=== PATIENT | male | born 1960 | race Caucasian/White ===

== ENCOUNTER → 2017-03-04 | Outpatient (CLI) | payer OTHER ==
[~2017-03-04] MED LIST: GADOBUTROL 10 MMOL/10 ML VIAL IV ONE; LEXAPRO10 MG PO
--- NOTE | 2017-03-04 14:23 | RAD ---
EXAM: Brain MRI with and without contrast. HISTORY: Headaches and dizziness. Vestibular schwannoma. TECHNIQUE: Multiplanar, multisequence magnetic resonance imaging of the brain was performed prior to and following the administration of 9 cc Gadavist intravenous contrast. COMPARISON: 09/20/2014 and 09/21/2013 FINDINGS: There is no restricted diffusion to suggest acute or subacute infarction. There is no midline shift. There is no hydrocephalus. There are a few scattered foci of T2/FLAIR hyperintensity within the cerebral white matter, a nonspecific finding. There is an enhancing mass centered within the right internal auditory canal with extension to the cerebellopontine angle. This measures 1.5 cm anteroposteriorly by 1.4 cm transversely by 1.6 cm craniocaudally. This lesion expands the internal auditory canal and porus acusticus. The extracanalicular portion of the lesion measures 1.5 x 0.5 x 0.5 cm and abuts the left trigeminal nerve complex and traversing cerebellopontine angle vessels. There is no significant mass effect on the brain. There is no lesion extension to the basal turn of the cochlea. No additional enhancing lesion is seen. The orbits are unremarkable. There is mild paranasal sinus mucosal thickening. The mastoid air cells are clear. There are normal flow voids within the cerebral vessels. IMPRESSION: 1. 1.6 x 1.5 x 1.4 cm enhancing mass centered within an expanded left internal auditory canal, with extension into the cerebellopontine angle to about the left trigeminal nerve complex. This is consistent with a similar schwannoma and increased in size compared to prior measurements of 1.4 x 1.3 x 1.2 cm. There are 2. Scattered foci of signal change within the cerebral white matter, likely due to chronic small vessel disease. Electronically signed by: Angelica Nolasco MD (03/04/2017 2:20 PM) [id number]
== END | disposition home or self-care (01) ==
LOC: MRI 12:21
PROVIDERS: ATTEND Radiology Radiation Oncology
DX: D33.3 Benign neoplasm of cranial nerves (principal); R51 Headache; R42 Dizziness and giddiness
CPT/HCPCS: 70553; A9585

== ENCOUNTER → 2017-12-08 | Outpatient (CLI) | payer OTHER ==
[2017-12-08] MEDS: GADOBUTROL 7.5 MMOL/7.5 ML VIAL IV (15:24)
== END | disposition home or self-care (01) ==
LOC: MRI 13:53
DX: D33.3 Benign neoplasm of cranial nerves (principal); Z92.3 Personal history of irradiation
CPT/HCPCS: 70553; A9585

== ENCOUNTER → 2021-09-18 | Outpatient (CLI) | payer OTHER ==
[~2021-09-18] MED LIST changes: -GADOBUTROL 10 MMOL/10 ML VIAL IV ONE; +GADOTERATE 7.5 MMOL/15ML VIAL. IVP ONE
--- NOTE | 2021-09-18 16:18 | KCIC ---
EXAMINATION: Magnetic resonance imaging (MRI) of the brain and brainstem with and without contrast wi th dedicated views of the Temporal Bones and Internal Auditory Canals (IACs) DATE: 09/18/2021 1:20 PM INDICATION: ACOUSTIC NEUROMA. Follow up acoustic neuroma, lt sided hearing loss. TECHNIQUE: Multiplanar, multisequence MR images were performed with and without contrast. Multiple T1 + T2 weighted images were obtained through temporal bone and IACs. 3D T2 weighted images were als o obtained and reconstructed in coronal and sagittal planes. 14 cc of Clariscan contrast was given i ntravenously. COMPARISON: 12/08/2017. FINDINGS: Left cerebellopontine angle solid enhancing mass measures 1.1 x 1.1 x 1.2 cm (AP by TV by CC), previo usly 1.5 x 1.5 x 1.6 cm when measured in the same fashion. Mass is again noted to extend into and wid en the porus acusticus. 5 mm apical fluid cap. No mass within the right internal auditory canal or cerebellopontine angle. The cochlear forms are no rmal with normal fluid signal within cochlea. The semicircular canals are normal. No acute infarction. No acute or chronic hemorrhage. The ventricles are normal in size and position w ithout hydrocephalus. Mild cerebral volume loss. scattered FLAIR hyperintensities in the subcortical and periventricular deep white matter, a nonspecific finding, most commonly seen with chronic small v essel ischemic disease. The scalp and calvarium are normal. The pituitary and sella are normal. No Chiari malformation. The v isualized upper cervical spine is normal. The visualized portions of the orbits, mastoids and paranasal sinuses are normal. Normal flow voids i n the distal internal carotid and basilar arteries indicate patency. IMPRESSION: Left CPA 1.2 cm mass previously measured 1.6 cm. 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 Electronically signed by: Eliceo Dsouza MD (09/18/2021 4:16 PM) [id number]
== END ==
LOC: KCIC MRI 13:14
PROVIDERS: ATTEND Nurse Practitioner Adult Health
DX: D33.3 Benign neoplasm of cranial nerves (principal)
CPT/HCPCS: 70553; A9575